=== PATIENT | female | born 1980 ===

== ENCOUNTER 2017-02-09 18:09 | Emergency (ER) | payer MEDICAID, OTHER ==
[2017-02-09 18:16] VITALS: RESP 18; O2SAT 99
[2017-02-09] MEDS ORDERED: Oxycodone/Acetaminophen 5/325 mg Tab PO STA (18:39)
--- NOTE | 2017-02-09 18:52 | ED PDOC ---
Lower Extremity Pain/Injury Time Seen by Provider: 02/09/17 18:20 Chief Complaint (Nursing): Lower Extremity Problem/Injury Chief Complaint (Provider): Right calf pain History Per: Patient History/Exam Limitations: no limitations Onset/Duration Of Symptoms: Hrs (1 hour prior to arrival) Current Symptoms Are (Timing): Still Present Additional Complaint(s): Melanie Arciniega is a 37 y/o female who presents to the ED complaining of right calf pain, onset 1 hour prior to arrival. Patient states that while babysitting today , she was running and felt a pop in her right lower extremity with onset of right calf pain. Denies having any other medical complaints. No foot or ankle pain. Pain is described as throbbing, and calf is painful to touch. PMD: [facility] Past Medical History Reviewed: Historical Data, Nursing Documentation, Vital Signs Vital Signs: Last Vital Signs Temp 98.9 F 02/09/17 18:12 Pulse 106 H 02/09/17 18:12 Resp 18 02/09/17 18:12 BP 124/78 02/09/17 18:12 Pulse Ox 99 02/09/17 18:12 - Surgical History Surgical History: ( x 2) Other surgeries: Cardiac ablation - Family History Family History: States: Unknown Family Hx - Social History Current smoker - smoking cessation education provided: No Alcohol: None Drugs: Denies - Home Medications Home Medications: Ambulatory Orders Medication Instructions Recorded Albuterol HFA [Ventolin HFA 90 1 puff IH ASDIR #1 unit 07/01/15 mcg/actuation (8 g)] Amoxicillin/Clavulanate [Augmentin 1 tab PO BID #20 tab 07/01/15 875 MG-125 MG] Benzonatate [Tessalon Perles] 200 mg PO Q8H PRN #30 tab 07/01/15 Fluticasone Propionate [Flonase] 1 actuation NS DAILY #0 ml 07/01/15 - Allergies Allergies/Adverse Reactions: Allergies Allergy/AdvReac Type Severity Reaction Status Date / Time No Known Allergies Allergy Verified 07/01/15 12:55 Review of Systems ROS Statement: Except As Marked, All Systems Reviewed And Found Negative Musculoskeletal: Positive for: Other (Right calf pain). Negative for: Foot Pain (or ankle pain) Physical Exam - Reviewed Nursing Documentation Reviewed: Yes Vital Signs Reviewed: Yes - Physical Exam Appears: Positive for: Non-toxic, No Acute Distress Head Exam: Positive for: ATRAUMATIC, NORMAL INSPECTION, NORMOCEPHALIC Skin: Positive for: Normal Color, Warm, Dry Eye Exam: Positive for: EOMI, Normal appearance, PERRL Neck: Positive for: Normal, Painless ROM Extremity: Positive for: Calf Tenderness (to the right), Deformity (Muscular) Neurologic/Psych: Positive for: Alert, Oriented - ECG O2 Sat by Pulse Oximetry: 99 (RA) Pulse Ox Interpretation: Normal Medical Decision Making Medical Decision Making: Time: 18:39 Initial Impression: R/o fracture Initial Plan: --Urine test --Given Motrin and Percocet --Pending X-Ray Right Tibia Fibula Time: 19:25 --Patient continuing to complain of pain Time: 20:39 --Pending US Duplex lower extremity (-) DVT Podiatry splinted patient and is giving Rx for MRI. f/u in clinic. Scribe Attestation: Documented by Tiffanie Flores, acting as a scribe for Mary Carrasco PA-C Provider Scribe Attestation: All medical record entries made by the Scribe were at my direction and personally dictated by me. I have reviewed the chart and agree that the record accurately reflects my personal performance of the history, physical exam, medical decision making, and the department course for this patient. I have also personally directed, reviewed, and agree with the discharge instructions and disposition. Disposition - Clinical Impression Clinical Impression: Injury of calf - Patient ED Disposition Is Patient to be Admitted: No Counseled Patient/Family Regarding: Diagnosis, Need For Followup, Rx Given - Disposition Referrals: Podiatry Clinic [Outside] Disposition: Routine/Home Disposition Time: 23:32 Condition: GOOD Additional Instructions: Ice, elevation. Motrin for inflammation and pain. percocet for severe pain. Instructions: Musculoskeletal Pain (ED) Forms: [employer] (Lithuanian)
[2017-02-09] MEDS ORDERED: Oxycodone/Acetaminophen 5/325 mg Tab ONE (19:03)
--- NOTE | 2017-02-09 22:12 | US ---
EXAM: US Duplex Right Lower Extremity Veins CLINICAL HISTORY: 37 years old, female; Signs and symptoms; Swelling of limb; Lower extremity, right; Additional info: Calf pain, right - pop TECHNIQUE: Real-time ultrasound scan of the veins of the right lower extremity with color Doppler flow, spectral waveform analysis and compression. COMPARISON: No relevant prior studies available. FINDINGS: Deep veins: Unremarkable. No DVT in the visualized common femoral, femoral, proximal deep femoral or popliteal veins. The veins demonstrate normal color flow, are normally compressible, with normal phasic flow and/or augmentation response. Superficial veins: Unremarkable. No thrombus in the visualized great saphenous vein. Soft tissues: Trace free fluid within the proximal calf along the medial aspect measuring 22 mm in greatest dimension. IMPRESSION: No deep venous thrombosis. Trace free fluid within the proximal calf along the medial aspect, measuring 22 mm in greatest dimension.
[2017-02-09 23:50] VITALS: BP 112/68; PULSE 70; TEMP 98
--- NOTE | 2017-02-10 01:55 | CP.PCM.CON ---
History of Present Illness - History of Present Illness History of Present Illness: 37 year old female with no PMH presents to the ED for right calf pain. She states that at 4pm today she was chasing the kids, made a turn and heard a pop. She denies falling or any twisting. She reports the pain being on the posterior calf, rating the pain 8/10, worse with any pressure to the calf. She describes the pain as a throbbing pain that comes and goes. She denies n/v/sob/cp/chills or f. She denies any numbness or tingling bilaterally. She is seen resting comfortably with the right ankle in a plantarflex position. PMH: none PSH: 2 c sections FH: unknown SH: denies smoking, drinking, or recreational drug use Allergies: NKDA Meds: none Past Patient History - Past Social History Alcohol: None Drugs: Denies - PSYCHIATRIC Hx Substance Use: No - SURGICAL HISTORY Hx Section: Yes (x2) Other/Comment: cardiac ablastion Meds Home Medications: Home Medication List Medication Instructions Recorded Confirmed Type Ibuprofen [Motrin Tab] 800 mg PO Q6H PRN #20 tab 02/09/17 Rx oxyCODONE/Acetaminophen [Percocet 1 ea PO Q6H PRN #15 tab 02/09/17 Rx 5/325 mg Tab] Allergies/Adverse Reactions: Allergies Allergy/AdvReac Type Severity Reaction Status Date / Time No Known Allergies Allergy Verified 07/01/15 12:55 Physical Exam - Constitutional Appears: Well, Non-toxic, No Acute Distress - Extremities Exam Additional comments: Vasc: DP and PT 2/4 bilaterally, 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, Temperature gradient WNL, edema noted to right calf Ortho: severe pain with palpation of the medial belly of the gastronemcius proximally, severe pain ilicited with passive and active right ankle ROM, no pain with plantarflexion of the right ankle, no pain with palpation of the Achilles tendon distally or at the level of insertion, no notable deficit noted to the entire Achilles tendon, Villarreal test unable to perform secondary to severe pain with palpation Neuro: gross and protective sensation intact, denies numbness and tingling Derm: No open lesions noted, skin is hydrated, no ecchymosis noted, no erythema noted, nails are wnl - Neurological Exam Neurological exam: Alert, Oriented x3 - Psychiatric Exam Psychiatric exam: Anxious, Normal Affect Results - Vital Signs Recent Vital Signs: Last Vital Signs Temp 98 F 02/09/17 23:48 Pulse 70 02/09/17 23:48 Resp 18 02/09/17 23:48 BP 112/68 02/09/17 23:48 Pulse Ox 99 02/09/17 23:48 Assessment & Plan - Assessment and Plan (Free Text) Assessment: 37 year old female with no PMH for right calf pain secondary to trauma, most likely strain/partial tear of gastrocnemius medially Plan: Pt seen and examined in ED Discussed plan in detail with attending Dr. Smiley Chart, labs, vitals reviewed- afebrile Ultrasound- neg DVT; trace free fluid within the proximal calf along the medial aspect, measuring 22mm in greatest dimension X-ray reviewed by me- no fractures noted, increase soft tissue swelling noted to right calf, no radiolucency along the gastroc appreciated with X-rays Applied posterior splint, told to keep c/d/i, dont get wet Instructed NWB in crutches Given script for MRI for right calf Instructed on RICE protocol F/U in clinic within 1 week Thank you for the consult
--- NOTE | 2017-02-10 09:11 | RAD ---
PROCEDURE: Radiographs of the right tibia and fibula. HISTORY: pain, calf, pop sensation COMPARISON: None available. TECHNIQUE: Frontal and lateral views obtained. FINDINGS: BONES: No acute fractures. No evidence of cortical destructive changes. There is small elliptical shaped sclerotic focus within the medial aspect proximal right tibial metaphysis that may represent bone island or osteoma. JOINT SPACES: Joint spaces preserved. No significant osteoarthritis OTHER FINDINGS: No subcutaneous emphysema IMPRESSION: No acute fractures.
== END 2017-02-09 23:50 | disposition home or self-care (01) ==
LOC: H.ER 18:09
DX: S89.91XA Unspecified injury of right lower leg, initial encounter (principal); X58.XXXA Exposure to other specified factors, initial encounter

== ENCOUNTER 2017-02-16 13:42 | Emergency (ER) | payer OTHER, SELFPAY ==
[2017-02-16 13:57] VITALS: BP 126/74; PULSE 88; RESP 18; TEMP 98; O2SAT 99
[2017-02-16] MEDS ORDERED: Oxycodone/Acetaminophen 5/325 mg Tab PO ONE (14:28)
[2017-02-16] MEDS ORDERED: Oxycodone/Acetaminophen 5/325 mg Tab ONE (14:32)
--- NOTE | 2017-02-16 15:34 | US ---
PROCEDURE: Right lower extremity venous duplex Doppler. HISTORY: leg pain COMPARISON: Comparison made with prior study dated 02/09/2017 TECHNIQUE: Common femoral, superficial femoral, popliteal and posterior tibial veins were evaluated. Flow was assessed with color Doppler, compressibility, assessment of phasic flow and augmentation response. FINDINGS: COMMON FEMORAL VEIN: Unremarkable. SUPERFICIAL FEMORAL VEIN: Unremarkable. POPLITEAL VEIN: Unremarkable. POSTERIOR TIBIAL VEIN: Not visualized due to overlying bandages-dressings OTHER FINDINGS: None. IMPRESSION: No evidence of deep venous thrombosis within the visualized deep veins of the right lower extremity that include the common femoral superficial femoral popliteal vein. Note the posterior tibial vein was not the evaluated due to overlying bandages-dressing.
--- NOTE | 2017-02-16 15:53 | ED PDOC ---
Lower Extremity Pain/Injury Time Seen by Provider: 02/16/17 14:00 Chief Complaint (Nursing): Lower Extremity Problem/Injury Chief Complaint (Provider): Lower Extremity Problem/Injury History Per: Patient History/Exam Limitations: no limitations Onset/Duration Of Symptoms: Days (x1 week) Current Symptoms Are (Timing): Still Present Additional Complaint(s): Melanie Arciniega is a 37 year old female who presents to the emergency department for an evaluation of a right lower extremity injury associate with increasing pain that occurred a week ago. Denied any fever, chills, shortness of breath or chest pain. Patient stated she was recently seen by a mail processing associate in which an MRI was performed and showed findings of torn ligaments in her right leg. She was advised to go to ED to rule out deep vein thrombosis and has been taking Percocet for pain relief with some improvements. PMD: none provided Past Medical History Reviewed: Historical Data, Nursing Documentation, Vital Signs Vital Signs: Last Vital Signs Temp 98 F 02/16/17 13:54 Pulse 88 02/16/17 13:54 Resp 18 02/16/17 13:54 BP 126/74 02/16/17 13:54 Pulse Ox 99 02/16/17 13:54 - Surgical History Surgical History: ( x 2) - Family History Family History: States: Unknown Family Hx - Social History Current smoker - smoking cessation education provided: No Alcohol: None Drugs: Denies - Home Medications Home Medications: Ambulatory Orders Medication Instructions Recorded Albuterol HFA [Ventolin HFA 90 1 puff IH ASDIR #1 unit 07/01/15 mcg/actuation (8 g)] Amoxicillin/Clavulanate [Augmentin 1 tab PO BID #20 tab 07/01/15 875 MG-125 MG] Benzonatate [Tessalon Perles] 200 mg PO Q8H PRN #30 tab 07/01/15 Fluticasone Propionate [Flonase] 1 actuation NS DAILY #0 ml 07/01/15 Ibuprofen [Motrin Tab] 800 mg PO Q6H PRN #20 tab 02/09/17 oxyCODONE/Acetaminophen [Percocet 1 ea PO Q6H PRN #15 tab 02/09/17 5/325 mg Tab] Ibuprofen [Motrin] 600 mg PO Q6H PRN #20 tab 02/16/17 oxyCODONE/Acetaminophen [Percocet 1 tab PO Q6H PRN #5 tab 02/16/17 5/325 mg Tab] - Allergies Allergies/Adverse Reactions: Allergies Allergy/AdvReac Type Severity Reaction Status Date / Time No Known Allergies Allergy Verified 07/01/15 12:55 Review of Systems ROS Statement: Except As Marked, All Systems Reviewed And Found Negative Constitutional: Negative for: Fever, Chills Cardiovascular: Negative for: Chest Pain Respiratory: Negative for: Shortness of Breath Musculoskeletal: Positive for: Leg Pain (right-sided) Physical Exam - Reviewed Nursing Documentation Reviewed: Yes Vital Signs Reviewed: Yes - Physical Exam Appears: Positive for: Well, Non-toxic, No Acute Distress Head Exam: Positive for: ATRAUMATIC, NORMAL INSPECTION, NORMOCEPHALIC Cardiovascular/Chest: Positive for: Regular Rate, Rhythm. Negative for: Chest Non Tender Respiratory: Positive for: Normal Breath Sounds. Negative for: Crackles, Rales , Rhonchi, Wheezing, Respiratory Distress Gastrointestinal/Abdominal: Positive for: Normal Exam, Bowel Sounds, Soft. Negative for: Tenderness, Guarding, Rebound Extremity: Positive for: Normal ROM (right leg in splint), Tenderness (right leg ). Negative for: Pedal Edema, Deformity Neurologic/Psych: Positive for: Alert, line installer repairer II-XII, Oriented - ECG O2 Sat by Pulse Oximetry: 99 (RA) Pulse Ox Interpretation: Normal Medical Decision Making Medical Decision Making: Initial Impression: Lower extremity injury Initial Plan: * Percocet 5/325mg PO * US lower extremity (right) Time: 1532 --US LE FINDINGS: COMMON FEMORAL VEIN: Unremarkable. SUPERFICIAL FEMORAL VEIN: Unremarkable. POPLITEAL VEIN: Unremarkable. POSTERIOR TIBIAL VEIN: Not visualized due to overlying bandages-dressings OTHER FINDINGS: None. IMPRESSION: No evidence of deep venous thrombosis within the visualized deep veins of the right lower extremity that include the common femoral superficial femoral popliteal vein. Note the posterior tibial vein was not the evaluated due to overlying bandages-dressing. Time: 0 --Patient evaluated by podiatry. Leg splint was changed. --Upon provider reevaluation, patient is medically stable and requires no further treatment in the ED at this time. Patient will be discharged home with Rx for Motrin and Percocet. Counseling was provided and all questions were answered regarding diagnosis and need for follow up with mail processing associate in 1 week. There is agreement to discharge plan. Return if symptoms persist or worsen. Clinical Impression: Tendon injury Scribe Attestation: Documented by Kellen Benitez, acting as a scribe for Amanda Morales MD. Provider Scribe Attestation: All medical record entries made by the Scribe were at my direction and personally dictated by me. I have reviewed the chart and agree that the record accurately reflects my personal performance of the history, physical exam, medical decision making, and the department course for this patient. I have also personally directed, reviewed, and agree with the discharge instructions and disposition. Disposition - Clinical Impression Clinical Impression: Tendon injury - Patient ED Disposition Is Patient to be Admitted: No Doctor Will See Patient In The: Office Counseled Patient/Family Regarding: Studies Performed, Diagnosis, Need For Followup, Rx Given - Disposition Referrals: [facility] [Outside] Podiatry Clinic [Outside] Disposition: Routine/Home Disposition Time: 17:40 Condition: IMPROVED Additional Instructions: follow up with podiatry in one week return to the ED with any worsening or concerning symptoms. Prescriptions: Ibuprofen [Motrin] 600 mg PO Q6H PRN #20 tab PRN Reason: Pain, Moderate (4-7) oxyCODONE/Acetaminophen [Percocet 5/325 mg Tab] 1 tab PO Q6H PRN #5 tab PRN Reason: Pain, Moderate (4-7) Instructions: Leg Pain (ED) Forms: [employer] (Uzbek)
--- NOTE | 2017-02-16 19:10 | CP.PCM.CON ---
History of Present Illness - History of Present Illness History of Present Illness: 37 year old female seen in ED after being sent from podiatry clinic for posterior right calf pain with tingling and numbness of her foot. Patient was being seen in clinic s/p plantaris tendon rupture and was sent to ED for ultrasound to r/o DVT. Patient states that the posterior splint she has been wearing has been digging in to the back of her foot causing her pain. Patient denies any further pedal complaints at this time. Patient denies N/V/F/C/CP/SOB Review of Systems - Review of Systems Review of Systems: ROS unremarkable outside of HPI Past Patient History - Past Social History Alcohol: None Drugs: Denies - PSYCHIATRIC Hx Substance Use: No - SURGICAL HISTORY Hx Section: Yes (x2) Other/Comment: cardiac ablastion Meds Home Medications: Home Medication List Medication Instructions Recorded Confirmed Type Ibuprofen [Motrin] 600 mg PO Q6H PRN #20 tab 02/16/17 Rx oxyCODONE/Acetaminophen [Percocet 1 tab PO Q6H PRN #5 tab 02/16/17 Rx 5/325 mg Tab] Allergies/Adverse Reactions: Allergies Allergy/AdvReac Type Severity Reaction Status Date / Time No Known Allergies Allergy Verified 07/01/15 12:55 Physical Exam - Constitutional Appears: Well, Non-toxic, No Acute Distress - Extremities Exam Additional comments: LE focused exam: Vasc: DP and PT 2/4 bilaterally, STRATEGIC MANAGER < 3 seconds, Temperature gradient WNL, edema noted to right calf Ortho: severe pain with palpation of the medial belly of the gastronemcius proximally, severe pain ilicited with passive and active right ankle ROM, no pain with plantarflexion of the right ankle, no pain with palpation of the Achilles tendon distally or at the level of insertion, no notable deficit noted to the entire Achilles tendon, Villarreal test unable to perform secondary to severe pain with palpation Neuro: gross and protective sensation intact Derm: No open lesions noted, skin is hydrated, no ecchymosis noted, no erythema noted, nails are normotrophic and well manicured - Neurological Exam Neurological exam: Alert, Oriented x3 - Psychiatric Exam Psychiatric exam: Normal Affect, Normal Mood Results - Vital Signs Recent Vital Signs: Last Vital Signs Temp 98 F 02/16/17 13:54 Pulse 88 02/16/17 13:54 Resp 18 02/16/17 13:54 BP 126/74 02/16/17 13:54 Pulse Ox 99 02/16/17 18:15 Assessment & Plan - Assessment and Plan (Free Text) Assessment: 37 year old female with no PMH seen in ED for right calf pain secondary to trauma Plan: Patient seen and evaluated Charts, labs and vitals reviewed LE ultrasound negative for DVT Patient given new posterior splint Patient advised to remain NWB with use of crutches Patient to return to podiatry clinic next week for regularly scheduled f/u appointment - Date & Time Date: 02/16/17 Time: 17:14
== END 2017-02-16 17:50 | disposition home or self-care (01) ==
LOC: H.ER 13:42
DX: M79.604 Pain in right leg (principal)